=== PATIENT | female | born 1980 | race Caucasian/White ===

== ENCOUNTER 2016-08-16 14:37 | Emergency (ER) | payer OTHER ==
[~2016-08-16] VITALS: Ht 170.2 cm; Wt 78.6 kg
[2016-08-16 14:46] VITALS: BP 121/77; PULSE 88; RESP 16; O2SAT 98
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
[2016-08-16] MEDS ORDERED: NPR500T PO (16:10)
[2016-08-16 16:20] VITALS: BP 121/77; PULSE 88; RESP 16; O2SAT 98
== END 2016-08-16 16:22 | disposition home or self-care (01) ==
LOC: SED 14:37
DX: M25.511 Pain in right shoulder (principal); V47.6XXA Car passenger injured in collision with fixed or stationary object in traffic accident, initial encounter; Y93.89 Activity, other specified; Y92.410 Unspecified street and highway as the place of occurrence of the external cause; Y99.8 Other external cause status